=== PATIENT | female | born 2000 | race Caucasian/White ===

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

== ENCOUNTER 2022-04-12 21:10 | Emergency (ER) | payer OTHER ==
[~2022-04-12] VITALS: Ht 157.5 cm; Wt 68.4 kg
[2022-04-12] MEDS ORDERED: KETOROLAC 30 MG/ML 1ML VIAL IV ONE (22:15)
[2022-04-12] MEDS ORDERED: ONDANSETRON 4MG 2ML VIAL IV ONE (22:15)
[2022-04-12] MEDS ORDERED: NS 1,000 ML IV ONE (22:20)
[2022-04-12 22:30] VITALS: BP 116/76
[2022-04-12 22:42] LABS: BASO % 0.3 % (0.0-1.0); EOS # 0.1 10^3/uL (0.0-0.5); EOS % 0.9 % (0.0-3.0); HEMOGLOBIN 13.1 g/dl (12.0-15.5); LYMPH # 2.3 10^3/uL (1.5-5.0); MEAN CORPUSCULAR HEMOGLOBIN 25.7 pg (27.0-33.0); MEAN CORPUSCULAR HGB CONC 33.6 g/dl (32.0-36.5); MEAN CORPUSCULAR VOLUME 76.5 fl (80.0-96.0); MONO # 0.9 10^3/uL (0.0-0.8); MONO % 6.8 % (2.0-8.0); NEUTROPHILS # 9.2 10^3/uL (1.5-8.5); NEUTROPHILS % 73.7 % (36.0-66.0); PLATELET COUNT, AUTOMATED 325 10^3/uL (150-450); WHITE BLOOD COUNT 12.5 10^3/uL (4.0-10.0)
[2022-04-12 23:27] LABS: BLOOD UREA NITROGEN 9 MG/DL (9-23); CALCIUM LEVEL 8.8 MG/DL (8.5-10.1); CARBON DIOXIDE LEVEL 22 MMOL/L (20-31); CHLORIDE LEVEL 108 MMOL/L (98-107); CREATININE FOR GFR 0.83 MG/DL (0.55-1.30); GLUCOSE, FASTING 114 MG/DL (60-100); MAGNESIUM LEVEL 1.8 MG/DL (1.8-2.4); POTASSIUM SERUM 3.3 MMOL/L (3.5-5.1); SODIUM LEVEL 143 MMOL/L (136-145)
[2022-04-13] MEDS ORDERED: KETO10TAB PO (00:12)
[2022-04-13] MEDS ORDERED: FLOM0.4C39 PO (00:12)
== END 2022-04-13 00:26 | disposition home or self-care (01) ==
LOC: M ED 21:10
DX: N20.0 Calculus of kidney (principal); Z87.442 Personal history of urinary calculi; Z79.899 Other long term (current) drug therapy
CPT/HCPCS: 74176; 80048; 81001; 83735; 84702; 85025; 96361; 96374; 96375; 99283; J1885; J2405

== ENCOUNTER → 2023-06-28 | Outpatient (CLI) | payer OTHER ==
[2023-06-28 17:38] LABS: HEMATOCRIT 38.1 % (36.0-47.0); HEMOGLOBIN 12.6 g/dl (12.0-15.5); MEAN CORPUSCULAR HEMOGLOBIN 26.5 pg (27.0-33.0); MEAN CORPUSCULAR HGB CONC 33.1 g/dl (32.0-36.5); MEAN CORPUSCULAR VOLUME 80.2 fl (80.0-96.0); PLATELET COUNT, AUTOMATED 293 10^3/uL (150-450); RED BLOOD COUNT 4.75 10^6/uL (4.00-5.40); WHITE BLOOD COUNT 10.8 10^3/uL (4.0-10.0)
[2023-06-28 18:05] LABS: HIV 1&2 SCREEN NEGATIVE (NEGATIVE)
[2023-06-28 18:13] LABS: HEPATITIS C VIRUS ABY INDEX < 0.02 INDEX (<0.8)
[2023-06-28 20:16] LABS: GC DNA AMPLIFICATION NEGATIVE (NEGATIVE)
== END ==
LOC: M PLALAB 14:27
PROVIDERS: ATTEND Advanced Practice Midwife
DX: Z34.01 Encounter for supervision of normal first pregnancy, first trimester (principal)

== ENCOUNTER → 2023-07-26 | Outpatient (CLI) | payer OTHER, SELFPAY ==
[~2023-07-26] MED LIST changes: +ONDA-282 PO; -ONDA4TAB6 PO
== END ==
LOC: M PLALAB 13:49
PROVIDERS: ATTEND Obstetrics & Gynecology
DX: Z34.91 Encounter for supervision of normal pregnancy, unspecified, first trimester (principal)

== ENCOUNTER → 2023-07-26 | Outpatient (CLI) | payer OTHER, SELFPAY | LOC: M WHC 13:33 | PROVIDERS: ATTEND Obstetrics & Gynecology | DX: Z34.91 Encounter for supervision of normal pregnancy, unspecified, first trimester (principal) ==

== ENCOUNTER → 2023-09-20 | Outpatient (CLI) | payer MEDICAID, OTHER, SELFPAY | LOC: M WHC 12:47 | PROVIDERS: ATTEND Obstetrics & Gynecology | DX: Z34.92 Encounter for supervision of normal pregnancy, unspecified, second trimester (principal); Z3A.20 20 weeks gestation of pregnancy ==

== ENCOUNTER → 2023-11-03 | Outpatient (CLI) | payer MEDICAID, OTHER, SELFPAY | LOC: M WHC 11:42 | PROVIDERS: ATTEND Obstetrics & Gynecology | DX: Z36.2 Encounter for other antenatal screening follow-up (principal); Z3A.26 26 weeks gestation of pregnancy ==

== ENCOUNTER → 2023-11-03 | Outpatient (CLI) | payer MEDICAID ==
[2023-11-03 15:44] LABS: HEMATOCRIT 33.2 % (36.0-47.0); HEMOGLOBIN 10.9 g/dl (12.0-15.5); MEAN CORPUSCULAR HEMOGLOBIN 26.7 pg (27.0-33.0); MEAN CORPUSCULAR HGB CONC 32.8 g/dl (32.0-36.5); MEAN CORPUSCULAR VOLUME 81.2 fl (80.0-96.0); PLATELET COUNT, AUTOMATED 246 10^3/uL (150-450); RED BLOOD COUNT 4.09 10^6/uL (4.00-5.40); WHITE BLOOD COUNT 15.5 10^3/uL (4.0-10.0)
[2023-11-03 15:47] LABS: GLUCOSE CHALLENGE TEST 1 HOUR 73 MG/DL (LESS THAN 140)
[2023-11-03 16:17] LABS: HIV 1&2 SCREEN NEGATIVE (NEGATIVE)
[2023-11-03 16:25] LABS: HEPATITIS C VIRUS ABY INDEX < 0.02 INDEX (<0.8)
== END ==
LOC: M PLALAB 12:28
PROVIDERS: ATTEND Nurse Practitioner Women's Health
DX: Z34.02 Encounter for supervision of normal first pregnancy, second trimester (principal); Z3A.00 Weeks of gestation of pregnancy not specified

== ENCOUNTER 2023-11-30 18:38 | Outpatient (CLI) | payer MEDICAID, OTHER ==
[~2023-11-30] VITALS: Ht 157.5 cm; Wt 78.9 kg
[2023-11-30] MEDS ORDERED: OMEP10CASR PO (18:56)
[2023-11-30] MEDS ORDERED: PRENTAB9 PO (18:56)
[2023-11-30 18:58] VITALS: BP 107/71
[2023-11-30] MEDS: metroNIDAZOLE (FLAGYL) 500MG TABLET PO ONE (20:06)
[2023-11-30 20:23] LABS: APPEARANCE, URINE HAZY (CLEAR); BACTERIA, URINE AUTO NEGATIVE (NEGATIVE); BILIRUBIN, URINE AUTO NEGATIVE (NEGATIVE); BLOOD, URINE BLOOD NEGATIVE (NEGATIVE); COLOR, URINE YELLOW (YELLOW); GLUCOSE, URINE (UA) AUTO NEGATIVE (NEGATIVE); KETONE, URINE AUTO NEGATIVE (NEGATIVE); LEUKOCYTE ESTERASE, URINE AUTO TRACE (NEGATIVE); MUCUS, URINE SMALL (NEGATIVE); NITRITE, URINE AUTO NEGATIVE (NEGATIVE); PROTEIN, URINE AUTO NEGATIVE (NEGATIVE); RBC, URINE AUTO 1 /HPF (0-3); SPECIFIC GRAVITY URINE AUTO 1.019 (1.002-1.035); SQUAMOUS EPITHELIAL CELL UR AU 5 /HPF (0-6); UROBILINOGEN, URINE AUTO 0.2 mg/dL (0.0-2.0); WBC, URINE AUTO 4 /HPF (0-3)
[2023-11-30 21:13] LABS: Trichomonas vaginalis (AMP) NOT DETECTED (NEGATIVE)
[2023-11-30 21:36] LABS: GC DNA AMPLIFICATION NEGATIVE (NEGATIVE)
== END 2023-11-30 23:15 | disposition home or self-care (01) ==
LOC: M LDO 18:38
PROVIDERS: ATTEND Advanced Practice Midwife
DX: O23.593 Infection of other part of genital tract in pregnancy, third trimester (principal); O26.893 Other specified pregnancy related conditions, third trimester; R25.2 Cramp and spasm; Z3A.30 30 weeks gestation of pregnancy
CPT/HCPCS: 59025; 76815; 76817; 76820; 81001; 87086; 87661; 87810; 87850; G0463

== ENCOUNTER 2024-01-09 10:11 | Inpatient (IN) | payer OTHER, MEDICAID ==
[~2024-01-09] VITALS: Ht 160 cm; Wt 96.7 kg
[2024-01-09] VITALS (28 sets, daily range): BP systolic 107–142; BP diastolic 53–86; O2SAT 98
[~2024-01-09 10:11] MED LIST changes: +OMEP10CASR PO; +PRENTAB9 PO
[2024-01-09] MEDS ORDERED: HOME MED LIST COMPLETE! XX SCH (10:30)
[2024-01-09] MEDS ORDERED: METHYLERGONOVINE MALEATE 0.2MG/ML 1ML VIAL IM PRN (10:45)
[2024-01-09] MEDS ORDERED: CARBOPROST TROMETHAMINE 250 MCG/ML AMP IM PRN (10:45)
[2024-01-09] MEDS ORDERED: TRANEXAMIC ACID INJection 1,000 MG in NS 100 ML IV PRN (10:45)
[2024-01-09] MEDS ORDERED: OXYTOCIN INJ 10UNITS/ML 1ML VIAL IM PRN (10:45)
[2024-01-09] MEDS: PENICILLIN G POTASSIUM 5 MU IV 5 MU in DEXTROSE 5% (D5W) MINI-BAG PLU 100 ML IV STA (11:19)
[2024-01-09] MEDS: LACTATED RINGER'S 1000 ML IV STA (11:19)
[2024-01-09 11:42] LABS: HEMATOCRIT 31.7 % (36.0-47.0); HEMOGLOBIN 10.3 g/dl (12.0-15.5); MEAN CORPUSCULAR HEMOGLOBIN 25.1 pg (27.0-33.0); MEAN CORPUSCULAR HGB CONC 32.5 g/dl (32.0-36.5); MEAN CORPUSCULAR VOLUME 77.1 fl (80.0-96.0); PLATELET COUNT, AUTOMATED 279 10^3/uL (150-450); RED BLOOD COUNT 4.11 10^6/uL (4.00-5.40); WHITE BLOOD COUNT 17.2 10^3/uL (4.0-10.0)
[2024-01-09] MEDS ORDERED: FENTANYL 2MCG/ML ROPIVACAINE 0.2% IN 0.9% NACL 100ML IVBAG As Ordered ONE (11:54)
[2024-01-09] MEDS ORDERED: NALOXONE INJ 0.4MG/1ML VIAL IV PRN (12:00)
[2024-01-09] MEDS ORDERED: ePHEDrine SULFATE 25 MG/5 ML(5MG/ML) SYRINGE IVP PRN (12:00)
[2024-01-09] MEDS ORDERED: ONDANSETRON 4MG 2ML VIAL IV PRN (12:00)
[2024-01-09] MEDS ORDERED: diphenhydrAMINE 50MG/ML VIAL IV PRN (12:00)
[2024-01-09] MEDS ORDERED: EPIDURAL/PCA KEYS XX PRN (12:00)
[2024-01-09] MEDS ORDERED: LR 500 ML IV PRN (12:00)
[2024-01-09] MEDS: FENTANYL/ROPIVACAINE/NACL BAG 100 ML EPIDURAL SCH (12:41)
[2024-01-09 12:46] LABS: HEPATITIS C VIRUS ABY INDEX 0.18 INDEX (<0.8)
[2024-01-09] MEDS: LR 1,000 ML IV SCH (14:17)
[2024-01-09] MEDS: PEN G POT 3,000,000 UNIT/50 ML 3,000,000 UNIT in IV 1 EA IV SCH (15:16)
[2024-01-09] MEDS: OXYTOCIN DRIP 30 UNITS in IV 1 EA IV PRN (16:32)
[2024-01-09] MEDS: LIDOCAINE 1% MDV 20ML VIAL INFIL PRN (16:38)
[2024-01-09] MEDS ORDERED: ACETAMINOPHEN 325 MG TAB PO PRN (17:55)
[2024-01-09] MEDS ORDERED: MOM 30ML SUSPENSION UDC PO PRN (17:55)
[2024-01-09] MEDS ORDERED: DOCUSATE SODIUM 100MG CAPSULE PO PRN (17:55)
[2024-01-09] MEDS ORDERED: IBUPROFEN 600MG TAB PO PRN (17:55)
[2024-01-09] MEDS ORDERED: RHOGAM 300MCG (1500IU) INJ IM SCH (17:55)
[2024-01-10 06:00] VITALS: BP 109/56; O2SAT 99
[2024-01-10] MEDS: PRENATAL VITAMINS CHEWABLE TABLET PO SCH (08:30)
[2024-01-10] MEDS: IBUPROFEN 800 MG TAB PO PRN (08:31)
[2024-01-10] MEDS: DIBUCAINE 1% OINTMENT 30GM TOP PRN (08:32)
[2024-01-10] MEDS: ANUSOL HC CREAM 30GM TOP PRN (08:32)
[2024-01-10 18:00] VITALS: BP 107/66; O2SAT 100
[2024-01-11] MEDS: ACETAMINOPHEN 500 MG TAB PO PRN (00:21)
[2024-01-11 06:00] VITALS: BP 110/60; O2SAT 97
[2024-01-11] MEDS ORDERED: ACET32TAB PO (08:23)
[2024-01-11] MEDS ORDERED: IBUP-1022 PO (08:23)
[2024-01-11] MEDS: MEASLES,MUMPS,RUBELLA VACCINE INJ (MMR-II) SC.IMMUN ONE (09:00)
== END 2024-01-11 14:10 | disposition home or self-care (01) | DRG 560 ==
LOC: M LDO 10:11 → M LDI 10:43 → M OBS 19:31
PROVIDERS: ADMIT Advanced Practice Midwife; ATTEND Advanced Practice Midwife
PROC: 10E0XZZ Delivery of Products of Conception, External Approach (ICD-10-PCS; principal; 2024-01-09)
PROC: 0HQ9XZZ Repair Perineum Skin, External Approach (ICD-10-PCS; 2024-01-09)
DX: O42.013 Preterm premature rupture of membranes, onset of labor within 24 hours of rupture, third trimester (principal); O69.89X0 Labor and delivery complicated by other cord complications, not applicable or unspecified; Z37.0 Single live birth; Z3A.36 36 weeks gestation of pregnancy; O70.0 First degree perineal laceration during delivery

== ENCOUNTER → 2024-11-09 | Outpatient (REF) | payer OTHER, MEDICAID ==
[~2024-11-09] MED LIST changes: +ACET32TAB PO; -FLOM0.4C39 PO; -IBUP-1022 PO; +IBUP600T42 PO; +TAMS-18 PO
== END ==
LOC: M SFHCWAGY 17:21
PROVIDERS: ATTEND Advanced Practice Midwife
DX: Z12.4 Encounter for screening for malignant neoplasm of cervix (principal); R87.618 Other abnormal cytological findings on specimens from cervix uteri